=== PATIENT | female | born 1995 | race African-American/Black ===

== ENCOUNTER 2020-12-19 05:23 | Emergency (ER) | payer SELFPAY ==
[~2020-12-19] VITALS: Ht 167.6 cm; Wt 68.0 kg
[2020-12-19 06:09] VITALS: BP 159/79
--- NOTE | 2020-12-19 06:11 | NUR ---
TO LOBBY A/W BED AMBULATORY
--- NOTE | 2020-12-19 06:30 | NUR ---
SEEN AND EXAMINED BY YONIS
[2020-12-19] MEDS ORDERED: PHEN100C3 PO (06:54)
[2020-12-19] MEDS ORDERED: PHENYTOIN 100 MG CAPER PO ONE (06:55)
--- NOTE | 2020-12-19 06:55 | NUR ---
MEDICATED PER [facility] ORDER, TOLERATED WELL
[2020-12-19 07:23] VITALS: BP 120/79
--- NOTE | 2020-12-19 07:23 | NUR ---
Patient discharged with v/s stable. Written and verbal after care instructions given and explained. Patient alert, oriented and verbalized understanding of instructions. Ambulatory with steady gait. All questions addressed prior to discharge. ID band removed. Patient advised to follow up with PMD. Rx of DILANTIN given. Patient educated on indication of medication including possible reaction and side effects. Opportunity to ask questions provided and answered.
== END 2020-12-19 07:23 | disposition home or self-care (01) ==
LOC: MED 05:23
DX: G40.909 Epilepsy, unspecified, not intractable, without status epilepticus (principal); Z76.0 Encounter for issue of repeat prescription
CPT/HCPCS: 99283